=== PATIENT | male | born 1985 | race Caucasian/White ===

== ENCOUNTER 2018-01-31 15:58 | Emergency (ER) | payer SELFPAY ==
[~2018-01-31] VITALS: Ht 182.9 cm; Wt 65.0 kg
[2018-01-31 16:12] VITALS: BP 114/67; PULSE 89; RESP 14; TEMP 98.5; O2SAT 100
--- NOTE | 2018-01-31 16:33 | PD ---
HPI Chief Complaint: Injury Time Seen by Provider: 16:24 Travel History International Travel<30 days: No Contact w/Intl Traveler<30days: No Traveled to known affect area: No History of Present Illness HPI 32-year-old [id number] male presents the ED for evaluation of 1/10 left hand pain. Pain is mild, exacerbated to 7 out of 10 with touch. No alleviating factors reported. Onset in the early hours of the morning after he punched a wall while intoxicated. He endorses limitations to range of motion secondary to pain. He denies numbness, tingling, weakness of the extremity. No treatment attempted at home. PFSH Past Medical History ?: Not Social History Tobacco Use: Yes Allergies-Medications (Allergen,Severity, Reaction): Coded Allergies: No Known Allergies (Verified Allergy, Severe, 01/31/18) Reported Meds & Prescriptions Reported Meds & Active Scripts Active Ibuprofen 800 Mg Tab 800 Mg PO Q8H PRN Review of Systems Except as stated in HPI: all other systems reviewed are Neg Physical Exam Narrative GENERAL: Well-nourished, well-developed white male no acute distress. SKIN: Focused skin assessment warm/dry. HEAD: Normocephalic. EYES: No scleral icterus. No injection or drainage. NECK: Supple, trachea midline. No JVD or lymphadenopathy. CARDIOVASCULAR: Regular rate and rhythm without murmurs, gallops, or rubs. RESPIRATORY: Breath sounds equal bilaterally. No accessory muscle use. GASTROINTESTINAL: Abdomen soft, non-tender, nondistended. MUSCULOSKELETAL: No cyanosis, or edema. FOCUSED LEFT UPPER EXTREMITY EXAM: 2+ radial pulse. Edema and ecchymosis over the fifth metacarpal. Ecchymosis palmar aspect distal 5th metacarpal. Tender to palpation of the shaft of the metacarpal. Patient is able to flex and extend the fingers. Patient is able to flex and extend the wrist. Strong finger to thumb abduction with each digit. Cap refill less than 2 seconds and sensation intact to light touch distally on each digit. BACK: Nontender without obvious deformity. No CVA tenderness. Data Data Last Documented VS Vital Signs Date Time Temp Pulse Resp B/P (MAP) Pulse Ox O2 Delivery O2 Flow Rate FiO2 01/31/18 16:12 98.5 89 14 114/67 (83) 100 Orders Orders Hand, Complete ([id number]) (01/31/18 16:26) Ice/Cold Pack (01/31/18 16:26) Splinting (01/31/18 ) Ed Discharge Order (01/31/18 17:30) [facility] Medical Decision Making Medical Screen Exam Complete: Yes Emergency Medical Condition: Yes Differential Diagnosis Boxers fracture versus dislocation versus contusion versus other Narrative Course 32-year-old [id number] male presents the ED for evaluation of /10 left hand pain. Onset in the early hours of the morning after he punched a wall while intoxicated. Vitals reviewed. On exam there is edema and ecchymosis over the fifth metacarpal, including the palmar aspect of the hand. Patient is able to flex and extend the digits, strong finger to thumb opposition. Neurovascularly intact distally. X-ray reveals mildly displaced neck fracture of the fifth metacarpal. I spoke with . He is in agreement with the plan for ulnar gutter splint and outpatient follow-up. Mandatory outpatient consult was placed on the patient's behalf. Splint was applied by the [employer], neurovascularly intact distally post splinting. He is provided detailed follow-up instructions , short course of anti-inflammatory medications. He indicated understanding of the instructions. He is stable and discharged home. Diagnosis Primary Impression: Fracture of fifth metacarpal bone of left hand Qualified Codes: S62.337A - Displaced fracture of neck of fifth metacarpal bone, left hand, initial encounter for closed fracture Referrals: Dawson Wen MD Additional Instructions: Rest, hydrate. Take anti-inflammatory medications as prescribed. Elevate the extremity to reduce throbbing pain. Do not remove the splint for any reason. A mandatory outpatient consult has been placed on your behalf. A technical services representative of the hospital or the hand surgeon's office will be in touch within 7 days to schedule follow-up If you have not heard from anyone call the patient assistance program at the hospital. Follow-up with hand surgery as discussed. Return to the ED for any urgent or emergent medical condition. Med/Other Pt SpecificInfo: Prescription(s) given Scripts Ibuprofen (Ibuprofen) 800 Mg Tab 800 MG PO Q8H Y for Pain/Inflammation, #15 TAB 0 Refills Prov: Tammie Kelly DO 01/31/18 Disposition: 01 DISCHARGE HOME Condition: Stable Ameena Addison January 31, 2018 16:33
--- NOTE | 2018-01-31 17:21 | RADRPT ---
EXAM DATE: 01/31/2018 5:03 PM EDT AGE/SEX: 32 years / Male INDICATIONS: Patient complains of pain at 5th MCP status post punching elevator wall. CLINICAL DATA: This is the patient's initial encounter. Patient reports that signs and symptoms have been present for 1 day and indicates a pain score of 3/10. MEDICAL/SURGICAL HISTORY: None. None. COMPARISON: No prior [facility] exams available for comparison. FINDINGS: The examination demonstrates a comminuted, mildly angulated fracture of the distal fifth metacarpal. The remainder of the osseous structures are intact. CONCLUSION: Mildly angulated fracture of the fifth metacarpal. Electronically signed by: Rubens Sears MD 01/31/2018 5:20 PM EDT
[2018-01-31] MEDS ORDERED: IBUP1TAB7 PO (17:30)
== END 2018-01-31 18:09 | disposition home or self-care (01) ==
LOC: NEPK 15:58
DX: S62.337A Displaced fracture of neck of fifth metacarpal bone, left hand, initial encounter for closed fracture (principal); W22.01XA Walked into wall, initial encounter; Z72.0 Tobacco use
CPT/HCPCS: 29125; 73130